=== PATIENT | female | born 1965 | race African-American/Black ===

== ENCOUNTER 2016-06-14 08:58 | Emergency (ER) | payer OTHER ==
[~2016-06-14] VITALS: Ht 154.9 cm; Wt 83.5 kg
== END 2016-06-14 10:20 | disposition home or self-care (01) ==
LOC: ED 08:58
DX: M47.892 Other spondylosis, cervical region (principal); M48.02 Spinal stenosis, cervical region
CPT/HCPCS: 96372; 99283; J1885

== ENCOUNTER 2019-01-31 09:04 | Emergency (ER) | payer OTHER ==
[~2019-01-31] VITALS: Ht 154.9 cm; Wt 80.7 kg
[2019-01-31 09:16] VITALS: TEMP 98.3
[2019-01-31 12:16] VITALS: BP 114/86
== END 2019-01-31 12:16 | disposition home or self-care (01) ==
LOC: ED 09:04
DX: N89.8 Other specified noninflammatory disorders of vagina (principal)
CPT/HCPCS: 81000; 81025; 87490; 87590; 96372; 99283; 99284; J0696